=== PATIENT | female | born 1960 | race Caucasian/White ===

== ENCOUNTER 2022-06-05 21:40 | Emergency (ER) | payer BC, SELFPAY ==
--- NOTE | ~2022-06-05 | US_ITS ---
EXAMINATION: US VENOUS ULTRASOUND WITH DOPPLER LOWER EXTREMITY, LEFT CLINICAL INFORMATION: Left lower extremity pain COMPARISON: None TECHNIQUE: Ultrasound of the deep veins is performed from the hip to the calf with compression sonography and color and pulse Doppler assessment. Spectral analysis with color-flow imaging is performed. FINDINGS: There is normal venous compression and respiratory variation and augmented flow. The visualized common femoral vein, superficial femoral vein, profunda femoral vein, popliteal vein, and the trifurcation region shows no evidence of deep venous thrombosis. The contralateral right common femoral vein appears normal. There is no significant popliteal fossa cyst. A prominent 2.6 cm left inguinal lymph node is present that looks architecturally normal. If the patient's symptoms persist, followup ultrasound in 5 days 7 days might be of value to exclude proximal propagation from a non-visualized calf vein. US/US venous duplex LE IMPRESSION: No DVT demonstrated in the left lower extremity.
--- NOTE | ~2022-06-05 | XR_ITS ---
EXAMINATION: XR CHEST CLINICAL INFORMATION: Pain COMPARISON: None TECHNIQUE: Frontal view of the chest was obtained. FINDINGS: No significant abnormality is noted involving the heart, lungs, mediastinum, bony thorax or soft tissues. XR/XR chest 1V IMPRESSION: Unremarkable examination.
[2022-06-05 22:40] VITALS: BP 141/68; PULSE 80; RESP 18; TEMP 36.4; O2SAT 96; BMI 39.5
[2022-06-05 22:58] LABS: MANUAL DIFF FLAG NO
[2022-06-05 22:59] LABS: Basophils Absolute Auto 0.1 X10*3/uL (0.0-0.2); Basophils Percent Auto 1.1 % (0-2); Eosinophils Absolute Auto 0.2 X10*3/uL (0.0-0.4); Eosinophils Percent Auto 2.1 % (0-4); Hematocrit 42.6 % (37.0-47.0); Hemoglobin 14.6 g/dl (12.0-16.0); Imm Gran Abs Auto 0.01 X10*3/uL (0.00-0.03); Imm Gran Pct Auto 0.1 % (0.0-0.4); Lymphocytes Absolute Auto 2.4 X10*3/uL (1.2-4.9); Lymphocytes Percent Auto 28.8 % (20-40); Mean Corpuscular HGB Conc 34.3 g/dl (31.0-35.0); Mean Corpuscular Hemoglobin 29.6 pg (27.0-33.0); Mean Corpuscular Volume 86.4 fL (80.0-98.0); Mean Platelet Volume 10.1 fL (9.4-12.3); Monocytes Absolute Auto 0.7 X10*3/uL (0.1-1.2); Monocytes Percent Auto 8.7 % (2-11); Neutrophils Absolute Auto 4.9 x10*3/uL (2.0-8.3); Neutrophils Percent Auto 59.2 % (45-73); Platelet Count 244 X10*3/uL (160-400); Red Blood Count 4.93 X10*6/uL (4.20-5.50); Red Cell Distribution Width 12.5 % (11.0-16.0); White Blood Count 8.2 X10*3/uL (4.8-10.8)
[2022-06-05 23:17] VITALS: BP 149/84; PULSE 78; RESP 14; O2SAT 98
[2022-06-05 23:18] LABS: D Dimer High Sensitivity 227 NG/ML
--- NOTE | 2022-06-05 23:18 | PC.NURSE ---
pt brought back from the waiting room, pt is A&Ox 4, respirations are even and unlabored, pt states the pain goes from her left knee up to groin. Has been having this pain for the past [address] Cesar in to see pt at this time
[2022-06-05 23:19] LABS: Anion Gap 13 (12-20); Blood Urea Nitrogen 21 mg/dL (9-16); Calcium 9.5 mg/dL (8.4-10.2); Carbon Dioxide 28 mmol/L (22-29); Chloride 105 mmol/L (96-108); Creatinine Clr Calc Pharmacy 79.1; Estimated Glomerular Filt Rate 58; Glucose Random 121 mg/dL (60-115); Potassium 4.5 mmol/L (3.3-5.1); Sodium 141 mmol/L (135-145)
--- NOTE | 2022-06-05 23:22 | ED.GENADULT ---
HPI - General Adult General Chief complaint: Extremity Problem Stated complaint: Possible blood clot? Time Seen by Provider: 06/05/22 23:11 Source: patient Mode of arrival: ambulatory History of Present Illness HPI narrative: Patient presents with 4 days of left leg pain. She states her calf is sore and she has pain in her popliteal fossa up in to her left medial leg. No significant increase in her baseline pedal edema. No chest pain or shortness of breath. No prior history of thromboembolic disease. No family history of thromboembolic disease that she is aware of. She does not smoke or take hormonal replacement therapy. No recent injuries. No recent long travels. She is concerned about blood clot and that is why she presented here today. No fevers or chills. No redness or skin changes. No falls or precipitating factors. Related Data Allergies Allergy/AdvReac Type Severity Reaction Status Date / Time Sulfa (Sulfonamide Allergy Swelling Verified 06/05/22 22:40 Antibiotics) Review of Systems Constitutional: Comments: No weakness. No fevers or chills Cardiovascular: Comments: No palpitations or chest pain Respiratory: Comments: No cough or shortness of breath Musculoskeletal: Comments: Left leg pain is described Integumentary/Breasts: Comments: No rashes skin changes Neurologic: Comments: No focal weakness PMFSH Social History Social History Advance Directives: No Advance Directives Information Provided: No Physical Exam ED Vital Signs: Vital Signs - 24 hr 06/05/22 22:40 06/05/22 23:17 Temperature 97.5 F Pulse Rate 80 78 Respiratory Rate 18 14 Blood Pressure 141/68 H 149/84 H Pulse Oximetry 96 98 Oxygen Delivery Method Room Air Room Air BMI result Body Mass Index 39.5 Course Course Course Narrative: Ultrasound ordered. 00:29. Ultrasound shows no evidence of DVT. Stable for discharge home final diagnosis of muscle strain Medical Decision Making Differential Diagnosis Differential Diagnoses: The differential diagnosis associated with the presentation includes (DVT muscle strain) Lab Data Result Diagrams: 06/05/22 22:51 06/05/22 22:51 Labs: Lab Results 06/05/22 06/05/22 06/05/22 Range/Units 22:51 22:51 22:51 WBC 8.2 (4.8-10.8) X10*3/uL RBC 4.93 (4.20-5.50) X10*6/uL Hgb 14.6 (12.0-16.0) g/dl Hct 42.6 (37.0-47.0) % MCV 86.4 (80.0-98.0) fL MCH 29.6 (27.0-33.0) pg MCHC 34.3 (31.0-35.0) g/dl RDW 12.5 (11.0-16.0) % Plt Count 244 (160-400) X10*3/uL MPV 10.1 (9.4-12.3) fL Immature Gran % (Auto) 0.1 (0.0-0.4) % Neut % (Auto) 59.2 (45-73) % Lymph % (Auto) 28.8 (20-40) % [place] % (Auto) 8.7 (2-11) % Eos % (Auto) 2.1 (0-4) % Baso % (Auto) 1.1 (0-2) % Lymph # (Auto) 2.4 (1.2-4.9) X10*3/uL [place] # (Auto) 0.7 (0.1-1.2) X10*3/uL Eos # (Auto) 0.2 (0.0-0.4) X10*3/uL Baso # (Auto) 0.1 (0.0-0.2) X10*3/uL Abs Immat Gran (auto) 0.01 (0.00-0.03) X10*3/uL Absolute Neuts (auto) 4.9 (2.0-8.3) x10*3/uL Absolute Nucleated RBC 0.000 (0.0-0.012) X10*3/uL Nucleated RBC % (auto) 0.0 (0.0-0.2) /100WBC D-Dimer High Sensitivty 227 NG/ML Sodium 141 (135-145) mmol/L Potassium 4.5 (3.3-5.1) mmol/L Chloride 105 (96-108) mmol/L Carbon Dioxide 28 (22-29) mmol/L Anion Gap 13 (12-20) BUN 21 H (9-16) mg/dL Creatinine 0.97 (0.5-1.4) mg/dL Estim Creat Clear Calc 79.1 Estimated GFR 58 Random Glucose 121 H (60-115) mg/dL Calcium 9.5 (8.4-10.2) mg/dL Discharge Plan Discharge Clinical Impression: Strain of adductor muscle of thigh Patient Disposition: Home, Self-Care Instructions: Muscle Strain (ED) Additional Instructions: Neuro workup in the emergency department including ultrasound were normal. There is no evidence for blood clot causing her symptoms. Tylenol and ibuprofen for discomfort as needed
== END 2022-06-06 00:36 | disposition home or self-care (01) ==
PROVIDERS: Emergency Provider Emergency Medicine; PCP Nurse Practitioner Family
DX: S76.212A Strain of adductor muscle, fascia and tendon of left thigh, initial encounter (principal); X58.XXXA Exposure to other specified factors, initial encounter; M79.652 Pain in left thigh; Y93.9 Activity, unspecified; Y92.9 Unspecified place or not applicable; Y99.9 Unspecified external cause status
CPT/HCPCS: 36415; 71045; 80048; 85025; 85379; 93971; 99283; 99284